=== PATIENT | female | born 1950 | race Caucasian/White ===

== ENCOUNTER → 2021-10-03 10:36 | Outpatient (CLI) | payer MEDICARE, OTHER, SELFPAY ==
--- NOTE | 2021-10-03 12:00 | DI.RAD.S_ITS ---
PROCEDURE: XR DEXA AXIAL SKELETON INDICATIONS: osteopenia COMPARISON: None. FINDINGS: This blank DEXA report has been sent in error by the PACS system. The correct and complete report will be forthcoming in 1-2 days. Thank you for your patience and understanding. Dictated by: Hadley Francis M.D. on 10/03/2021 at 16:19 Transcribed by: YUKI on 10/03/2021 at 16:19 Approved by: Hadley Francis M.D. on 10/03/2021 at 16:42
== END ==
PROVIDERS: PCP Family Medicine; Referring Provider Family Medicine; Visit Provider Family Medicine
DX: Z13.820 Encounter for screening for osteoporosis; Z78.0 Asymptomatic menopausal state; M85.851 Other specified disorders of bone density and structure, right thigh; M85.852 Other specified disorders of bone density and structure, left thigh; Z79.810 Long term (current) use of selective estrogen receptor modulators (SERMs)
CPT/HCPCS: 77080

== ENCOUNTER → 2022-06-19 09:47 | Outpatient (CLI) | payer MEDICARE, OTHER, SELFPAY ==
[2022-06-19 10:44] LABS: BUN Creatinine Ratio 28.3 (6-22); Blood Urea Nitrogen 30 mg/dL (7-17); Calcium 9.2 mg/dL (8.4-10.2); Carbon Dioxide 29 mmol/L (22-32); Chloride 99 mmol/L (98-107); Estimated Glomerular Filt Rate 55 mL/min (>60); Glucose 99 mg/dL (80-110); HEMOLYSIS < 15 (0-50); Potassium 4.3 mmol/L (3.4-5.1); Sodium 131 mmol/L (137-145)
== END ==
PROVIDERS: PCP Family Medicine; Referring Provider Family Medicine; Visit Provider Family Medicine
DX: R60.9 Edema, unspecified (principal)
CPT/HCPCS: 36415; 80048

== ENCOUNTER → 2022-07-06 09:14 | Outpatient (CLI) | payer MEDICARE, OTHER, SELFPAY ==
[2022-07-06 11:27] LABS: BUN Creatinine Ratio 32.4 (6-22); Blood Urea Nitrogen 33 mg/dL (7-17); Calcium 8.8 mg/dL (8.4-10.2); Carbon Dioxide 25 mmol/L (22-32); Chloride 101 mmol/L (98-107); Estimated Glomerular Filt Rate 58 mL/min (>60); Glucose 90 mg/dL (80-110); HEMOLYSIS < 15 (0-50); Potassium 4.8 mmol/L (3.4-5.1); Sodium 134 mmol/L (137-145)
== END ==
PROVIDERS: PCP Family Medicine; Referring Provider Family Medicine; Visit Provider Family Medicine
DX: E87.8 Other disorders of electrolyte and fluid balance, not elsewhere classified (principal)
CPT/HCPCS: 36415; 80048

== ENCOUNTER → 2022-10-12 10:37 | Outpatient (CLI) | payer MEDICARE, OTHER, SELFPAY ==
--- NOTE | 2022-10-12 10:38 | DI.RAD.S_ITS ---
PROCEDURE: XR CERVICAL SPINE 2V OR 3V INDICATIONS: Parasthesia R arm; soft tissue mass posterior C spine TECHNIQUE: 3 view(s) of the cervical spine were acquired. COMPARISON: [facility], [place], PET NECK TO MID THIGH, 11/14/2021, 13:15. FINDINGS: Bones: Grade 1 anterolisthesis of C4 on C5. No fractures or dislocations to the T1 level. The lateral masses of C1 appear intact on the odontoid view. No suspicious bony lesions. Multilevel degenerative disease , moderate at C 5-C6 and C6-C7, moderate at other levels. Moderate bilateral facet arthropathy at C4-C5. Soft tissues: No prevertebral soft tissue swelling. Question soft tissue mass posterior to C5. IMPRESSION: 1. Moderate degenerative disc and facet disease. 2. Question soft tissue mass posterior to C5. Recommend correlation with findings on physical exam. If clinically indicated, ultrasound, CT or MRI may be helpful. Dictated by: Farzad Brandt M.D. on 10/12/2022 at 13:26 Approved by: Farzad Brandt M.D. on 10/12/2022 at 13:36
--- NOTE | 2022-10-12 10:38 | DI.MRI.S_ITS ---
PROCEDURE: MR HEAD/BRAIN WO/W CON INDICATIONS: tranisient loss of vision Lt eye; tingling numbness Rt arm TECHNIQUE: Noncontrast axial T1 spin echo, axial T2 fast spin echo, sagittal and axial FLAIR, coronal T2 fast spin echo, axial gradient echo, axial diffusion and ADC through the brain. After the administration of contrast, axial and coronal and sagittal T1 spin echo with fat saturation through the brain. Fat saturation post gadolinium and cut imaging through the orbits in axial and coronal planes. COMPARISON: None. FINDINGS: Image quality: Excellent. CSF spaces: Basal cisterns are patent. No extra-axial fluid collections. Ventricles are normal in size and shape. Brain: No midline shift. No intracranial bleeds or masses. No abnormal intracranial enhancement. There is cerebral volume loss for age. There is periventricular white matter chronic small vessel ischemic change. The brainstem appears normal. Diffusion-weighted images demonstrate no acute ischemic insults. No chronic ischemic insults. Mild, age-appropriate small-vessel ischemic change. Normal intravascular flow voids are present. Skull and face: Calvarial marrow is normal in signal. Orbits appear normal. Sinuses: Sinuses and mastoids appear clear. IMPRESSION: Negative brain MRI for patient age. No acute intracranial process. Dictated by: Miki Birch M.D. on 10/12/2022 at 12:21 Approved by: Miki Birch M.D. on 10/12/2022 at 12:27
== END ==
PROVIDERS: PCP Student in an Organized Health Care Education/Training Program; Referring Provider Physician Assistant; Visit Provider Physician Assistant
DX: H53.121 Transient visual loss, right eye (principal); I10 Essential (primary) hypertension; R20.2 Paresthesia of skin; M79.89 Other specified soft tissue disorders; C50.911 Malignant neoplasm of unspecified site of right female breast; M50.322 Other cervical disc degeneration at C5-C6 level; M47.812 Spondylosis without myelopathy or radiculopathy, cervical region
CPT/HCPCS: 70553; 72040

== ENCOUNTER → 2022-10-19 10:07 | Outpatient (CLI) | payer MEDICARE, OTHER, SELFPAY ==
--- NOTE | 2022-10-19 10:08 | DI.US.S_ITS ---
PROCEDURE: US CAROTID DOPPLER BI INDICATIONS: TRANSIENT ISCHEMIC ATTACK WITH TRANSIENT VISUAL LOSS TECHNIQUE: Color and pulse Doppler interrogation was performed of both carotid systems, with image documentation and velocity measurements. COMPARISON: None. FINDINGS: Stenosis calculations are based on SRU (Society of Radiologists in Ultrasound) criteria. The flow velocities and the arterial waveforms are normal within both carotid arterial systems. Minimal atherosclerotic plaque is seen. The estimated degree of internal carotid artery stenosis is less than 50%. Antegrade flow is confirmed within both vertebral arteries. On the right, there is a 7 x 6 x 6 mm nodule associated with the right thyroid, which may be related to a thyroid nodule or parathyroid nodule. On the left, there is a cystic/solid nodule seen that measures up to 6 mm. IMPRESSION: No hemodynamically significant stenosis is seen. Additional findings: Bilateral thyroid nodules Dictated by: Maged Collazo M.D. on 10/19/2022 at 13:52 Approved by: Maged Collazo M.D. on 10/19/2022 at 13:54
--- NOTE | 2022-10-19 12:00 | DI.MRI.S_ITS ---
PROCEDURE: MR CERVICAL SPINE WO CON INDICATIONS: Neck pain with parasthesia R arm; possible lipoma(?) C5 TECHNIQUE: Noncontrast sagittal T1 spin echo and T2 fast spin echo, sagittal STIR, foraminal oblique sagittal T2 fast spin echo, and axial gradient echo or T2 fast spin echo through the cervical spine. COMPARISON: None. FINDINGS: Image quality: Excellent. Alignment and Curvature: Trace anterolisthesis of C4 on C5. Trace retrolisthesis of C5 on C6. Trace anterolisthesis of C7 on T1. Bone Marrow: Marrow demonstrates normal overall signal. Spinal Cord: Visualized spinal cord has normal size and signal. No cerebellar tonsillar herniation. Paraspinous Soft Tissues: No paravertebral masses. Prevertebral soft tissues are normal in thickness. C2-C3: Right facet hypertrophy. No canal stenosis or foraminal stenosis. C3-C4: Bilateral facet hypertrophy. Bilateral uncovertebral joint hypertrophy. No canal stenosis. AP diameter of the canal is 10.9 mm. Moderate to severe bilateral foraminal narrowing with a degree of bilateral foraminal C4 nerve root impingement. C4-C5: Bilateral facet hypertrophy and uncovertebral joint hypertrophy. No canal stenosis. AP diameter of the canal is 11.3 mm. Bilateral moderate to severe foraminal narrowing with a degree of bilateral foraminal C5 nerve root impingement. C5-C6: Disc bulge plus osteophyte mildly flattening the ventral cord. Borderline canal stenosis. AP diameter of the canal is 10.2 mm. Bilateral uncovertebral joint hypertrophy. Severe bilateral foraminal narrowing with bilateral foraminal C6 nerve root impingement. C6-C7: Disc bulge. No canal stenosis. Bilateral uncovertebral joint hypertrophy. Moderate to severe bilateral foraminal narrowing with a mild degree of bilateral foraminal C7 nerve root impingement. C7-T1: Bilateral facet hypertrophy. No canal stenosis or foraminal stenosis. IMPRESSION: 1. Diffuse spondylitic change with multilevel facet arthropathy and uncovertebral joint hypertrophy. 2. Borderline canal stenosis at C5-C6. 3. Significant multilevel foraminal narrowing as described above. Findings include moderate to severe bilateral foraminal narrowing at C3-C4, C4-C5, and C6-C7. There is severe bilateral foraminal narrowing at C5-C6. Dictated by: Miki Birch M.D. on 10/19/2022 at 16:16 Approved by: Miki Birch M.D. on 10/19/2022 at 16:24
== END ==
PROVIDERS: PCP Student in an Organized Health Care Education/Training Program; Referring Provider Physician Assistant; Visit Provider Physician Assistant
DX: H53.121 Transient visual loss, right eye (principal); E04.2 Nontoxic multinodular goiter; M47.22 Other spondylosis with radiculopathy, cervical region; M48.02 Spinal stenosis, cervical region; I10 Essential (primary) hypertension; R20.2 Paresthesia of skin; M79.89 Other specified soft tissue disorders
CPT/HCPCS: 72141; 93880

== ENCOUNTER → 2022-10-21 11:12 | Outpatient (CLI) | payer MEDICARE, OTHER, SELFPAY ==
--- NOTE | 2022-10-21 11:13 | DI.US.S_ITS ---
PROCEDURE: US THYROID INDICATIONS: THYROID NODULES TECHNIQUE: Real-time scanning was performed of the thyroid gland, with image documentation. COMPARISON: None. FINDINGS: Right: Thyroid lobe measures 3.0 x 1.2 x 1.4 cm, and is homogeneous in echotexture. Left: Thyroid lobe measures 3.6 x 1.6 x 1.4 cm, and is homogenous in echotexture. Isthmus: 2 mm thick. Nodule number: 1 Location: Right inferior Size: 0.6 x 0.6 x 0.6 cm. Composition: Solid Echogenicity: Hyperechoic Shape: wider than tall. Margins: Smooth Echogenic foci: Non Total points: 3 ACR TI-RADS category: 3 Nodule number: 2 Location: Right mid Size: 0.6 x 0.4 x 0.5 cm Composition: Solid Echogenicity: Hypoechoic Shape: wider than tall. Margins: Smooth Echogenic foci: Non Total points: 4 ACR TI-RADS category: 4 Nodule number: 3 Location: Left mid Size: 0.6 x 0.5 x 0.3 cm. Composition: Solid Echogenicity: Hypoechoic Shape: wider than tall. Margins: Smooth Echogenic foci: None Total points: 4 ACR TI-RADS category: 4 Nodule number: 4 Location: Left mid posterior Size: 0.3 x 0.2 x 0.2 cm. Composition: Solid Echogenicity: Hypoechoic Shape: wider than tall. Margins: Smooth Echogenic foci: None Total points: 4 ACR TI-RADS category: 4 IMPRESSION: Bilateral category 4 subcentimeter nodules. Best practice guidelines suggest no follow-up required ACR TI-RADS definitions and recommendations: TI-RADS 1 (benign): 0 points. FNA not needed. TI-RADS 2 (not suspicious): 2 points. FNA not needed. TI-RADS 3 (mildly suspicious): 3 points. * FNA if 2.5 cm or larger, follow up if 1.5 cm or larger (at 1, 3, and 5 years). TI-RADS 4 (moderately suspicious): 4-6 points. * FNA if 1.5 cm or larger, follow up if 1 cm or larger (at 1, 2, 3, and 5 years). TI-RADS 5 (highly suspicious): 7 points or more. * FNA if 1 cm or larger, follow up if 0.5 cm or larger (every year for 5 years). Approved by: Jerod Gruber M.D. on 10/21/2022 at 18:49
== END ==
PROVIDERS: PCP Student in an Organized Health Care Education/Training Program; Referring Provider Physician Assistant; Visit Provider Physician Assistant
DX: E04.2 Nontoxic multinodular goiter (principal)
CPT/HCPCS: 76536

== ENCOUNTER 2023-05-05 08:01 | Day surgery (SDC) | payer MEDICARE, OTHER, SELFPAY ==
--- NOTE | 2023-05-04 08:54 | PM.HP.1 ---
History of Present Illness History of Present Illness Date Patient Seen: 05/05/23 Time Patient Seen: 09:34 Chief complaint: Laparoscopic Cholecystectomy Narrative: 72F with biliary colic here for elective cholecystectomy. No interval change in health. [facility] Medical History Arthritis Fractures (~2000) Mumps (~1958) Measles (~1954) Chicken pox (~1953) Herpes (~2004) Breast cancer Surgical History Status post left partial knee replacement (~05/2022) History of partial knee replacement (~2019) Anesthesia History of right mastectomy (~07/2020) History of mastectomy (~07/2016) History of ankle surgery (~09/2000) Family History Mother History of heart disease History of heart attack Brother Mental health problem Father Emphysema lung Social History marital status: number of children: 2 household members: none lives independently: Yes education level: college occupational status: previously employed (retired teacher) Smoking Status: Never smoker alcohol intake: current substance use type: does not use Meds Home Medications and Allergies Home Medications Medication Instructions Recorded Confirmed Type cholecalciferol (vitamin D3) 50 50 mcg PO DAILY 07/09/22 05/05/23 History mcg (2,000 unit) capsule tamoxifen 10 mg tablet 10 mg PO DAILY 09/03/22 05/05/23 History multivitamin with minerals 1 tab PO DAILY 11/24/22 05/05/23 History (Hair,Skin and Nails tablet) hydrochlorothiazide 25 mg tablet 25 mg PO DAILY PRN HTN #90 tabs 03/09/23 05/05/23 Rx losartan 25 mg tablet 25 mg PO DAILY #90 tabs 03/09/23 05/05/23 Rx valacyclovir 500 mg tablet 1,000 mg (2 x 500 mg) PO BID PRN 03/09/23 05/05/23 Rx herpes #60 tabs Allergies Allergy/AdvReac Type Severity Reaction Status Date / Time azithromycin Allergy Rash Verified 05/05/23 08:27 Sulfa (Sulfonamide Allergy Rash Verified 05/05/23 08:27 Antibiotics) lisinopril AdvReac Mild Cough Verified 05/05/23 08:27 Exam Narrative Exam Narrative: Gen-Adult woman alert and oriented Chest -Non labored resp Ext-WWP Assessment & Plan Assessment and plan (1) Biliary colic: Status: Acute Assessment & Plan narrative: 72F with biliary colic here for elective cholecystectomy. Overview of the operation again discussed. Operative risks including but not limited to hemorrhage, infection, damage to surrounding structures reviewed. Her questions have been answered and she is in agreement with this plan.
[2023-05-05] VITALS (13 sets, daily range): BP systolic 126–169; BP diastolic 52–78; PULSE 50–70; RESP 10–20; TEMP 36.2–37.1; O2SAT 92–100; BMI 27.3
--- NOTE | 2023-05-05 | PATH_ITS ---
[facility] Accession Number: [id number] No. of containers..01 Tissue . 01 Material submitted: . gallbladder - GALLBLADDER . 01 Diagnosis: GALLBLADDER, CHOLECYSTECTOMY: Mild, chronic calculous cholecystitis. Negative for dysplasia and malignancy. MRV 05/12/2023 1048 Local . 01 Electronically signed: . Yossi Nance MD, Pathologist NPI- [id number] . 01 Gross description: . The specimen is received in formalin labeled with the patient's name, , and gallbladder, and consists of an intact gallbladder measuring 6.3 x 3.4 x 2.5 cm, with an unremarkable external surface. The cystic duct margin is inked blue, and no pericystic lymph node is identified. The lumen contains multiple bosselated calculi measuring up to 0.6 cm in greatest dimension, not grossly obstructing the cystic duct, and admixed with dark green mucoid bile. The mucosa is green and velvety with yellow areas of discoloration, and no polyps or lesions identified. The shepard average 0.2 cm thick, and dental detail representative sections to include the cystic duct margin and full thickness sections are submitted in cassette A1. ([id number]) /MRV 05/07/2023 1348 Local . 01 Pathologist provided ICD-10: K80.50 . 01 CPT . 998952 Specimen Comment: A courtesy copy of this report has been sent to [phone] Performed at: 01 [facility] [address] [place] [address], [place], [place] [id number] MD Stef Landers MD Phone: [phone]
[2023-05-05] MEDS: LACTATED RINGERS 1,000 ML 21 ML IV (08:28)
[2023-05-05] MEDS: CEFAZOLIN 2 GM/100 ML PREMIX 100 ML IV (10:00)
[2023-05-05] MEDS: BUPIVACAINE 0.25% (PF) VIAL 30 ML INJ (10:08)
--- NOTE | 2023-05-05 10:11 | SUR.OPER ---
Supine on padded OR bed, head on pillow, arms padded and left arm tucked at side, right arm 90 degree abducted on cushion, legs uncrossed, safety belt at thigh, footboard in place, tape over blanket over lower legs .
[2023-05-05] MEDS: OXYCODONE IR 5 MG TABLET PO (11:02)
[2023-05-05] MEDS: HYDROMORPHONE 1 MG INJ IV (11:07)
--- NOTE | 2023-05-05 11:10 | P.OP_ITS ---
Operative Date/Time/Diagnoses Date of procedure: 05/05/23 Time of procedure: 11:10 Pre-op diagnosis: Biliary colic Post-op diagnosis: same Procedure & Clinicians Procedure: Laparoscopic cholecystectomy Same procedure as scheduled: Yes Indications: Siri is a 72 y.o woman with symptoms and radiographic findings consistent with biliary colic and wishes to proceed with cholecystectomy. Surgeon: Jaylan Blankenship Click Yes if Unassisted: Yes Anesthesia Type: General Operative Notes Findings: Critical view of safety established Cholelithiasis Specimen(s): other (Gallbladder) Estimated Blood Loss (mL): 10 Procedure in detail: The patient was placed supine on the table and bilateral lower extremity comp ression devices were applied. Anesthesia was induced they were intubated with an endotracheal tube and received 2g of Ancef. A time-out was performed. They were prepped and draped in sterile fashion. An infraumbilical incision was made. The fascia was elevated incised and the abdomen was entered atraumatically. A blunt tip 12mm balloon trocar was then inserted, pneumoperitoneum was established and inspection of the abdomen demonstrated no evidence of injury. They were placed head up and right side up and then a 11 mm port was placed high in the epigastrium and two 5mm in the right upper quadrant. Gallbladder was distended/tense and percutaneously drained facilitate its manipulation. The gallbladder was grasped by the fundus and retracted over the liver and retracted laterally by the infundibulum. Using electrocautery the lateral plane between the gallbladder and the liver was opened towards the fundus. The gallbladder was then retracted laterally and the medial plane was developed in the same manner. With the gallbladder mobilized the bottom of the cystic plate was visualized. The hepatocystic triangle was meticulosly skeletonized with blunt dissection of fat and fibrous tissue from both the front and the back. Only two structures were then clearly seen entering the gallbladder the cystic duct and the cystic artery. With the critical view of safety fully established the cystic duct was clipped twice proximally and once distally using the 10 mm Weck hemoclip applied under direct visualization and then sharply divided. The cystic artery was divided in the same fashion. The gallbladder was removed from the liver bed using electro cautery. The liver bed was then inspected for hemostasis and this was achieved, the clips were noted to be in good position. The specimen was removed using Endo-Catch. The abdomen was desufflated. The umbilical fascia was closed with 0 Vicryl in a gizoim-wy-vavyj fashion under direct visualization. Skin incisions were irr igated and closed with 4-0 Monocryl. 30 ml of 0.25% bupivacaine was infiltrated into the subcutaneous tissue of the incisions. The wounds were sealed with Dermabond. Patient emerged from anesthesia was extubated and transferred to recovery in stable condition. The sponge and instrument count at the end of the operation was correct. Complications: none Post-operative Condition: stable Disposition: same day surgery
[2023-05-05] MEDS: diazePAM 10 MG/2 ML SYRINGE 2 MG IV (11:24)
== END 2023-05-05 12:45 | disposition home or self-care (01) ==
PROVIDERS: PCP Student in an Organized Health Care Education/Training Program; Referring Provider Surgery; Visit Provider Surgery
PROC: 0FT44ZZ Resection of Gallbladder, Percutaneous Endoscopic Approach (ICD-10-PCS; CPT 47562; principal; 2023-05-05 09:45)
DX: K80.10 Calculus of gallbladder with chronic cholecystitis without obstruction (principal)
CPT/HCPCS: 47562; 82962; J0690; J1170; J1885; J2405; J2704; J3010; J3360

== ENCOUNTER → 2024-04-05 12:30 | Outpatient (CLI) | payer MEDICARE, OTHER, SELFPAY ==
--- NOTE | 2024-04-05 12:37 | DI.RAD.S_ITS ---
PROCEDURE: XR ANKLE LT MIN 3V INDICATIONS: Bone Pain TECHNIQUE: 3 views of the ankle were acquired. COMPARISON: None. FINDINGS: Bones: No fractures or dislocations. Ankle mortise is normally aligned. Pdlr-[id number] osteoarthritic changes are noted throughout midfoot and hindfoot joints. Small plantar calcaneal enthesophyte is seen. No suspicious bony lesions. Soft tissues: No tibiotalar joint effusion. Achilles tendon appears normal. IMPRESSION: No acute ankle fracture or dislocation. Inmb-iw-fffariho midfoot and hindfoot joint osteoarthritis. Small plantar calcaneal enthesophyte. Dictated by: Thomas Dowling M.D. on 04/05/2024 at 15:20 Approved by: Thomas Dowling M.D. on 04/05/2024 at 15:22
--- NOTE | 2024-04-05 12:37 | DI.RAD.S_ITS ---
PROCEDURE: XR FOOT LT MIN 3V INDICATIONS: Bone Pain TECHNIQUE: 3 views of the foot were acquired. COMPARISON: None. FINDINGS: Bones: No fractures or dislocations. Moderate to severe hallux valgus. Osteoarthritic changes are noted throughout left foot most notably involving 1st MTP joint. Well-defined plantar calcaneal enthesophyte is seen. No suspicious bony lesions. Soft tissues: No tibiotalar joint effusion. Achilles tendon appears normal. IMPRESSION: Moderate to severe hallux valgus and hammertoe deformity involving 2nd and 3rd toes. Moderate 1st MTP joint osteoarthritis. Kbqj-gm-neajtnrj osteoarthritic changes throughout rest of left foot. No acute fracture or dislocation. Well-defined plantar calcaneal enthesophyte. Dictated by: Thomas Dowling M.D. on 04/05/2024 at 15:23 Approved by: Thomas Dowling M.D. on 04/05/2024 at 15:24
--- NOTE | 2024-04-05 12:37 | DI.RAD.S_ITS ---
PROCEDURE: XR ANKLE RT MIN 3V INDICATIONS: Bone Pain TECHNIQUE: 3 views of the ankle were acquired. COMPARISON: None. FINDINGS: Bones: Post ORIF changes are seen in lateral malleolus and medial malleolus. Surgical hardware are in their expected positions. No evidence of hardware loosening or failure. No acute fracture or dislocation. Moderate midfoot and hindfoot joint osteoarthritic changes are seen with joint space narrowing, subchondral sclerosis most notably involving tibiotalar joint. Well-defined plantar calcaneal enthesophyte is seen. Ankle mortise is normally aligned. No suspicious bony lesions. Soft tissues: No tibiotalar joint effusion. Achilles tendon appears normal. IMPRESSION: Postsurgical changes in medial and lateral malleoli. No gross hardware loosening or failure. No acute ankle fracture or dislocation. Osteoarthritic changes throughout midfoot and hindfoot joints. Dictated by: Thomas Dowling M.D. on 04/05/2024 at 15:18 Approved by: Thomas Dowling M.D. on 04/05/2024 at 15:19
--- NOTE | 2024-04-05 12:37 | DI.RAD.S_ITS ---
PROCEDURE: XR FOOT RT MIN 3V INDICATIONS: Bone Pain TECHNIQUE: 3 views of the foot were acquired. COMPARISON: None. FINDINGS: Bones: Moderate hallux valgus is seen. Osteoarthritic changes are noted throughout right foot joints more notably involving tibiotalar joint and 1st MTP joint. Post ORIF changes are seen in medial and lateral malleoli. No acute fracture or dislocation. No suspicious bony lesions. Soft tissues: No tibiotalar joint effusion. Achilles tendon appears normal. IMPRESSION: Moderate osteoarthritic changes in right foot. No acute fracture or dislocation. Plantar calcaneal enthesophyte. Dictated by: Thomas Dowling M.D. on 04/05/2024 at 15:22 Approved by: Thomas Dowling M.D. on 04/05/2024 at 15:23
== END ==
PROVIDERS: PCP Nurse Practitioner Family; Referring Provider Nurse Practitioner; Visit Provider Nurse Practitioner
DX: C50.911 Malignant neoplasm of unspecified site of right female breast (principal); C79.2 Secondary malignant neoplasm of skin; M89.8X9 Other specified disorders of bone, unspecified site; M20.12 Hallux valgus (acquired), left foot; M20.11 Hallux valgus (acquired), right foot; M77.32 Calcaneal spur, left foot; M77.31 Calcaneal spur, right foot; M20.42 Other hammer toe(s) (acquired), left foot; M19.072 Primary osteoarthritis, left ankle and foot
CPT/HCPCS: 73610; 73630

== ENCOUNTER → 2024-06-26 10:51 | Outpatient (CLI) | payer MEDICARE, OTHER, SELFPAY ==
[2024-06-26 12:50] LABS: TSH w/ Reflex to FT4 < 0.02 uIU/mL (0.47-4.68)
[2024-06-26 13:18] LABS: Free T4, Direct Thyroxine 1.23 ng/dL (0.78-2.19)
[2024-06-27 07:10] LABS: Parathyroid Hormone Int 37 pg/mL (15-65)
== END ==
PROVIDERS: PCP Nurse Practitioner Family; Referring Provider Nurse Practitioner; Visit Provider Nurse Practitioner
DX: E07.9 Disorder of thyroid, unspecified (principal)
CPT/HCPCS: 36415; 83970; 84439; 84443